=== PATIENT | female | born 1935 | race Caucasian/White ===

== ENCOUNTER 2024-06-19 12:13 | Emergency (ER) | payer MEDICARE | END 2024-06-19 15:09 | disposition home or self-care (01) | LOC: NAV ERS 12:13 | DX: S42.412A Displaced simple supracondylar fracture without intercondylar fracture of left humerus, initial encounter for closed fracture (principal); Z91.81 History of falling; W18.30XA Fall on same level, unspecified, initial encounter | CPT/HCPCS: 29105 ==